=== PATIENT | female | born 1980 | race Caucasian/White ===

== ENCOUNTER 2025-03-15 02:01 | Emergency (ER) | payer OTHER ==
[~2025-03-15] VITALS: Ht 160 cm; Wt 68.0 kg
[2025-03-15] MEDS ORDERED: FAMOTIDINE/PF INJ 20 MG/2 ML VIAL IV ONE (02:21)
[2025-03-15] MEDS ORDERED: dexaMETHasone SOD PHOSPHATE 1 ML ONE (02:21)
[2025-03-15] MEDS: FAMOTIDINE/PF INJ 20 MG/2 ML VIAL IV ONE (02:35)
[2025-03-15] MEDS: dexaMETHasone SOD PHOSPHATE 10 MG/ML VIAL IV ONE (02:35)
[2025-03-15] MEDS ORDERED: PRED20TA PO (03:31)
[2025-03-15 03:40] VITALS: BP 143/87; TEMP 98; O2SAT 99
== END 2025-03-15 03:40 | disposition home or self-care (01) ==
LOC: ER 02:13
DX: T78.2XXA Anaphylactic shock, unspecified, initial encounter (principal); I10 Essential (primary) hypertension; Y92.89 Other specified places as the place of occurrence of the external cause
CPT/HCPCS: 99284; 96374; 96375; J1100; J1308